=== PATIENT | male | born 1990 | race African-American/Black ===

== ENCOUNTER 2018-08-14 13:50 | Emergency (ER) | payer OTHER ==
[2018-08-14 14:12] VITALS: BP 119/81; PULSE 91; RESP 20; TEMP 99
== END 2018-08-14 15:40 ==
LOC: EC 13:50
DX: T16.2XXA Foreign body in left ear, initial encounter (principal); J32.9 Chronic sinusitis, unspecified
CPT/HCPCS: 69200; 99283